=== PATIENT | male | born 1960 | race American Indian/Alaskan Native ===

== ENCOUNTER 2017-02-16 16:34 | Inpatient (IN) | payer MEDICAID, OTHER ==
[2017-02-16 17:32] LABS: BASO % 0.6 % (0.0-2.0); EOS % 0.3 % (0.0-4.0); HEMATOCRIT 41.7 % (35.0-51.0); LYMPH # 1.5 K/uL (1.0-4.3); LYMPH % 26.4 % (20.0-40.0); MEAN CELL VOLUME 81.2 fL (80.0-94.0); MEAN CORPUSCULAR HEMOGLOBIN 26.2 pg (27.0-31.0); MEAN CORPUSCULAR HGB CONC 32.3 g/dL (33.0-37.0); MEAN PLATELET VOLUME 8.1 fL (7.2-11.7); MONO # 0.3 K/uL (0.0-0.8); MONO % 5.8 % (0.0-10.0); RED CELL DISTRIBUTION WIDTH 15.7 % (11.5-14.5); WHITE BLOOD COUNT 5.8 K/uL (4.8-10.8)
[2017-02-16 17:39] LABS: CHLORIDE 107 mmol/L (98-107); POTASSIUM 3.9 mmol/L (3.6-5.2); SODIUM 142 mmol/L (132-148)
[2017-02-16 17:41] LABS: GFR AFRICAN-AMERICAN > 60
[2017-02-16 17:42] LABS: ALB/GLOB RATIO 1.3 (1.0-2.1); ALKALINE PHOSPHATASE 50 U/L (38-126); ALT/SGPT 27 U/L (21-72); AST/SGOT 31 U/L (17-59); BILIRUBIN,TOTAL 0.3 mg/dL (0.2-1.3); BLOOD UREA NITROGEN 18 mg/dL (9-20); CALCIUM 9.1 mg/dl (8.6-10.4); CARBON DIOXIDE 24 mmol/L (22-30); GLUCOSE,RANDOM 96 mg/dL (75-110); TOTAL PROTEIN 7.7 g/dL (6.3-8.3)
[2017-02-16 17:43] LABS: ALCOHOL SERUM < 10 mg/dl (0-10)
[2017-02-16 17:59] LABS: RBC URINE < 1 /hpf (0-3); URINE BACTERIA OCC (<OCC); URINE BILIRUBIN NEGATIVE (NEGATIVE); URINE BLOOD NEGATIVE (NEGATIVE); URINE COLOR Yellow (YELLOW); URINE GLUCOSE (UA) NORMAL (Normal); URINE KETONE NEGATIVE (NEGATIVE); URINE LEUKOCYTE ESTERASE NEG Leu/uL (Negative); URINE PROTEIN 1+ mg/dL (NEGATIVE); URINE UROBILINOGEN NORMAL mg/dL (0.2-1.0); WBC URINE 1 /hpf (0-5)
--- NOTE | 2017-02-16 18:17 | C.PDOC ---
Time Seen by Provider: 02/16/17 17:08 Chief Complaint (Nursing): Substance Abuse Past Medical History Vital Signs: Last Vital Signs Temp 98.3 F 02/16/17 16:47 Pulse 66 02/16/17 16:47 Resp 18 02/16/17 16:47 BP 151/95 H 02/16/17 16:47 Pulse Ox 100 02/16/17 16:47 - Medical History PMH: Anxiety, Depression, HTN Denies: Diabetes, Hepatitis, HIV, Seizures, Sexually Transmitted Disease - [facility] Procedures DETOXIFICATION SERVICES FOR SUBSTANCE ABUSE TREATMENT (12/20/15) GROUP REHAB SPEC FOR SUBSTANCE ABUSE TREATMENT, PSYCHOEDUCATION (12/20/15) - Social History Hx Alcohol Use: No Hx Substance Use: Yes - Immunization History Hx Tetanus Toxoid Vaccination: No Hx Influenza Vaccination: No Hx Pneumococcal Vaccination: No ED Course And Treatment - Laboratory Results Result Diagrams: 02/16/17 17:25 02/16/17 17:25 O2 Sat by Pulse Oximetry: 100 Disposition - Disposition Disposition: HOME/ ROUTINE Disposition Time: 18:16 Condition: GOOD - POA Present On Arrival: None - Clinical Impression Clinical Impression: Opioid dependence, Cocaine abuse
--- NOTE | 2017-02-16 18:18 | C.PDOC ---
History Of Present Illness 56-year-old male, presents to the emergency department, pre-screened for detox from opiates. No physical complaints at this time. Patient's last use was yesterday. Time Seen by Provider: 02/16/17 17:08 Chief Complaint (Nursing): Substance Abuse History Per: Patient History/Exam Limitations: no limitations Onset/Duration Of Symptoms: Days Current Symptoms Are (Timing): Still Present Suicide/Self Injury Attempted (Context): None Severity: Mild Recent travel outside of the [place]: No Past Medical History Reviewed: Historical Data, Nursing Documentation, Vital Signs Vital Signs: Last Vital Signs Temp 98.3 F 02/16/17 16:47 Pulse 66 02/16/17 16:47 Resp 18 02/16/17 16:47 BP 151/95 H 02/16/17 16:47 Pulse Ox 100 02/16/17 18:23 - Medical History PMH: Anxiety, Depression, HTN Denies: Diabetes, Hepatitis, HIV, Seizures, Sexually Transmitted Disease - [facility] Procedures DETOXIFICATION SERVICES FOR SUBSTANCE ABUSE TREATMENT (12/20/15) GROUP HIRE CAR DRIVER FOR SUBSTANCE ABUSE TREATMENT, PSYCHOEDUCATION (12/20/15) Family History: States: No Known Family Hx - Social History Hx Alcohol Use: No Hx Substance Use: Yes - Immunization History Hx Tetanus Toxoid Vaccination: No Hx Influenza Vaccination: No Hx Pneumococcal Vaccination: No Review Of Systems Except As Marked, All Systems Reviewed And Found Negative. Constitutional: Negative for: Fever Respiratory: Negative for: Shortness of Breath Gastrointestinal: Negative for: Vomiting Musculoskeletal: Negative for: Back Pain Skin: Negative for: Rash Neurological: Negative for: Weakness, Numbness Physical Exam - Physical Exam Appears: Non-toxic, No Acute Distress Skin: Warm, Dry, No Rash Head: Atraumatic, Normacephalic Eye(s): bilateral: Normal Inspection, PERRL, EOMI Nose: Normal Lips: Normal Appearing Neck: Normal ROM, Supple Cardiovascular: Rhythm Regular Respiratory: Normal Breath Sounds, No Accessory Muscle Use Gastrointestinal/Abdominal: Soft, No Tenderness Extremity: Normal ROM Neurological/Psych: Oriented x3, Normal Speech, Normal Motor Gait: Steady ED Course And Treatment - Laboratory Results Result Diagrams: 02/16/17 17:25 02/16/17 17:25 O2 Sat by Pulse Oximetry: 100 (on ra) Pulse Ox Interpretation: Normal Progress Note: Case discussed w/ drying can worker Cherry. states patient to be admitted to Dr Cotton. Disposition - Disposition Disposition: HOSPITALIZED Disposition Time: 18:20 Condition: GOOD - POA Present On Arrival: None - Clinical Impression Clinical Impression: Opiate dependence, Cocaine abuse - Scribe Statement The provider has reviewed the documentation as recorded by the Scribe Reyes Bruce All medical record entries made by the Scribe were at my direction and personally dictated by me. I have reviewed the chart and agree that the record accurately reflects my personal performance of the history, physical exam, medical decision making, and the department course for this patient. I have also personally directed, reviewed, and agree with the discharge instructions and disposition.
[2017-02-16] MEDS ORDERED: Aluminum Hydroxide/Magnesium Hydroxide Susp (30 mL) PO PRN (18:30)
[2017-02-17] MEDS ORDERED: Buprenorphine Hydrochloride 2 mg SL ONE ×2 (09:37→10:00)
--- NOTE | 2017-02-17 12:23 | PCM.PSYCH ---
Initial Psychiatric Evaluation - Initial Psychiatric Evaluation Type of Admission: Voluntary Legal Status: Capacity Chief Complaint (in patient's own words): I came here to get help. History of Present Illness and Precipitating Events: This is a 56 years old AAM, who lives with his , currently unemployed on [employer] , with a history of heroin dependence, cocaine dependence and depressive disorder came to the ED to get help in heroin detox. Patient reports a long history of heroin abuse. He states history of multiple detoxes in the past. As per the pt, he relapsed on heroin and cocaine soon after his last detox at [facility] last year. He started abusing upto 20 bags on a daily basis along with $50-100 of cocaine. Yesterday he abused up to 7 bags of heroin along with $ 50 cocaine, and started experiencing withdrawal symptoms so came to the hospital to get help. Pt reports of withdrawal symptoms including sweating, headaches, joint pains, anxiety, nausea and cramps. He reports depressed mood, however, denies any feelings of hopelessness and helplessness and denies any suicidal ideation or homicidal ideation. Patient denies any auditory or visual hallucinations or any psychotic or manic symptoms. He denies any other substance abuse. Past medical history HTN Past psychiatric history Patient reports history of multiple detoxes in the past, last one was at last year. His longest period of sobriety was for 27 months from [id number]. Patient denies any past history of inpatient psychiatric hospitalizations, however reports history of follow-up with a psychiatrist for his depression medications. Patient denies any history of suicidal ideation or attempt or any history of homicidal ideation or attempt in the past. Patient denies any history of auditory or visual hallucinations or any psychotic symptoms in the past Current Medications: Active Medications Generic Name Dose Route Start Last Admin Trade Name Freq PRN Reason Stop Dose Admin Acetaminophen 650 mg 02/16/17 18:30 Tylenol 325mg Tab PO Q4H PRN Fever greater than 101 F Al Hydrox/Mg Hydrox/Simethicone 30 ml 02/16/17 18:30 Maalox 30 Ml PO TID PRN Indigestion / Heartburn Buprenorphine HCl 6 mg 02/18/17 10:00 Subutex SL 02/21/17 09:59 .TAPER [place] Taper Clonidine HCl 0.1 mg 02/16/17 18:30 Catapres PO Q8 PRN COWS Score More or Equal to 5 Hydroxyzine HCl 25 mg 02/16/17 18:32 Atarax PO Q6 PRN Anxiety Loperamide HCl 2 mg 02/16/17 18:30 Imodium PO Q8 PRN Diarrhea Ondansetron HCl 4 mg 02/16/17 18:30 Zofran Tab PO Q8 PRN Nausea/Vomiting Trazodone HCl 50 mg 02/16/17 22:00 02/16/17 21:36 Desyrel PO Not Given HS [facility] Past Psychiatric History - Past Psychiatric History Previous Treatment History: Inpatient Pertinent Medical Hx (Current Medical&Sleep Prob, Allergies): Allergies Allergy/AdvReac Type Severity Reaction Status Date / Time PORK Allergy Verified 02/16/17 16:44 Citalopram [celEXA] 20 mg PO DAILY 12/20/15 amLODIPine [Norvasc] 20 mg PO DAILY 12/20/15 buPROPion [Bupropion HCl] 75 mg PO DAILY 02/16/17 hydrOXYzine Pamoate [Vistaril] 50 mg PO BID 02/16/17 traZODone [Desyrel] 150 mg PO HS 02/16/17 Review of Systems - Review of Systems All systems: reviewed and no additional remarkable complaints except - Psychiatric Psychiatric: Anxiety, Irritability Mental Status Examination - Personal Presentation Personal Presentation: Looks stated age - Affect Affect: Constricted - Motor Activity Motor Activity: Calm - Reliability in Providing Information Reliability in Providing Information: Good - Speech Speech: Organized - Mood Mood: Anxious - Formal Thought Process Formal Thought Process: No Impairment - Obsessions/Compulsions Obsessions: No Compulsions: No - Cognitive Functions Orientation: Person, Place, Situation, Time Sensorium: Alert Attention/Concentration: Attentive Abstract Thinking: [place] Estimate of Intelligence: Below average Judgement: Imparied, as evidence by: Poor judgement, Intact, as evidence by: Insight regarding need for hospitalization - Risk Risk: Withdrawal, Diminished functioning - Strength & Assets Inventory Strength & Assets Inventory: Family support, Cooperative DSM 5 DX - DSM 5 DSM 5 Diagnosis: Opioid use disorder severe Opioid withdrawal Cocaine use disorder mild Major depressive disorder recurrent moderate - Recommended/Plan of Treatment Treatment Recommendations and Plan of Treatment: Opioid use disorder severe CBT Psychoeducation Supportive therapy, individual therapy Use HI for abstinence Opioid withdrawal CBT Psychoeducation Supportive therapy, individual therapy Clonidine when necessary Subutex when scoring Cocaine use disorder mild Monitor signs and symptoms Use HI for abstinence Major depressive disorder recurrent moderate CBT Psychoeducation Supportive therapy, individual therapy Celexa 20 mg PO daily Welbutrin 75 mg pO Daily Trazodone 150 mg PO Q HS Hypertension Continue prescribed medications Monitor for signs and symptoms - Smoking Cessation Smoking Cessation Initiated: No
--- NOTE | 2017-02-18 09:22 | PCM.PYCHPN ---
Psychiatric Progress Note - Psychiatric Progress Note Patient seen today, length of contact: 16 min Patient Chief Complaint: I am experiencing withdrawal symptoms. Problems Identified/Issues Discussed: Patient seen and evaluated, chart reviewed and discussed with the nurse. Patient reports improvement in his mood than yesterday but still reports withdrawal symptoms including, cramps, nausea, anxiety and headaches. Patient reports depressed mood but denies any suicidal ideation or homicidal ideation. He denies any auditory or visual hallucinations. He is tolerating the withdrawal medications and denies any side effects. Supportive therapy and psychoeducation were given. Medication Change: Yes (Subutex taper, increase welbutirn) Medical Record Reviewed: Yes Mental Status Examination - Cognitive Function Orientation: Person, Place, Situation, Time Memory: Intact Attention: WNL Concentration: Poor Association: WNL Fund of Knowledge: Poor - Mood Mood: Depressed - Affect Affect: Constricted, Depressed - Speech Speech: Soft - Formal Thought Process Formal Thought Process: No Impairment - Suicidal Ideation Suicidal Ideation: No - Homicidal Ideation Homicidal Ideation: No Goal/Treatment Plan - Goal/Treatment Plan Need for Continued Stay: Discharge may exacerbated symptoms, Severe functional impairment Progress Toward Problem(s) and Goals/Treatment Plan: Opioid use disorder severe CBT Psychoeducation Supportive therapy, individual therapy Use [place] for abstinence Opioid withdrawal CBT Psychoeducation Supportive therapy, individual therapy Clonidine when necessary Subutex when scoring Cocaine use disorder mild Monitor signs and symptoms Use NV for abstinence Major depressive disorder recurrent moderate CBT Psychoeducation Supportive therapy, individual therapy Celexa 20 mg PO daily Welbutrin XL 150 mg PO Daily Trazodone 150 mg PO Q HS Hypertension Continue prescribed medications Monitor for signs and symptoms - Smoking Cessation Smoking Cessation Initiated: No
[2017-02-18] MEDS: Buprenorphine Hydrochloride 2 mg SL SCH (09:30)
[2017-02-19] MEDS: Buprenorphine Hydrochloride 2 mg SL SCH (09:49)
[2017-02-19] MEDS: buPROPion 150 mg/24 Hours XL Tab PO SCH (09:50)
--- NOTE | 2017-02-19 13:59 | PCM.PYCHPN ---
Psychiatric Progress Note - Psychiatric Progress Note Patient seen today, length of contact: 18 min Patient Chief Complaint: Im tired Problems Identified/Issues Discussed: The pt is seen, chart reviewed, case discussed. Pt mood is positive today. Pt slept well the night before. Pt denies withdrawal symptoms. His current plan is to attend an Intensive Outpatient Program. Counseled on treatment. Aftercare discussed,support and psychoeducation given. Medical Problems: Hypertension Medication Change: Yes (Subutex taper, Wellbutirn) Medical Record Reviewed: Yes Mental Status Examination - Cognitive Function Orientation: Person, Place, Situation, Time Memory: Intact Attention: WNL Concentration: WNL Association: WN Fund of Knowledge: WNL - Mood Mood: Other (Positive) - Affect Affect: Constricted - Speech Speech: Appropriate - Formal Thought Process Formal Thought Process: No Impairment - Suicidal Ideation Suicidal Ideation: No - Homicidal Ideation Homicidal Ideation: No Goal/Treatment Plan - Goal/Treatment Plan Need for Continued Stay: Discharge may exacerbated symptoms Progress Toward Problem(s) and Goals/Treatment Plan: Opioid use disorder severe CBT Psychoeducation Supportive therapy, individual therapy Use [place] for abstinence Opioid withdrawal CBT Psychoeducation Supportive therapy, individual therapy Clonidine when necessary Subutex when scoring Cocaine use disorder mild Monitor signs and symptoms Use [place] for abstinence Major depressive disorder recurrent moderate CBT Psychoeducation Supportive therapy, individual therapy Celexa 20 mg PO daily Welbutrin XL 150 mg PO Daily Trazodone 150 mg PO Q HS Hypertension Continue prescribed medications Monitor for signs and symptoms Estimated Date of D/C: 02/20/17 - Smoking Cessation Smoking Cessation Initiated: No
--- NOTE | 2017-02-20 08:42 | PCM.PYCHDC ---
Mental Status Examination - Mental Status Examination Orientation: Person, Place, Situation, Time Memory: Intact Mood: Neutral Affect: Broad, Constricted Speech: Appropriate Attention: WNL Concentration: WNL Formal Thought Process: No Impairment Suicidal Ideation: No Current Homicidal Ideation?: No Discharge Summary - Discharge Note Reason for Hospitalization: Opioid Use Disorder Consultations:: List each consultation separately and include: 1. Reason for request. 2. Findings. 3. Follow-up Summary of Hospital Course include:: 1. Description of specific treatment plan utilized for patients during their course of treatmen. 2. Summarize the time- course for resolution of acute symptoms and/or regressed behaviors. 3. Describe issues identified and worked on during hospitalization. 4. Describe medication utilized. 5. Describe medical problems identified and treated. 6. Reassessment of suicide risk Summary of Hospital Course: On admission: This is a 56 years old AAM, who lives with his , currently unemployed on [facility] , with a history of heroin dependence, cocaine dependence and depressive disorder came to the ED to get help in heroin detox. Patient reports a long history of heroin abuse. He states history of multiple detoxes in the past. As per the pt, he relapsed on heroin and cocaine soon after his last detox at [facility] last year. He started abusing upto 20 bags on a daily basis along with $50-100 of cocaine. Yesterday he abused up to 7 bags of heroin along with $ 50 cocaine, and started experiencing withdrawal symptoms so came to the hospital to get help. Pt reports of withdrawal symptoms including sweating, headaches, joint pains, anxiety, nausea and cramps. He reports depressed mood, however, denies any feelings of hopelessness and helplessness and denies any suicidal ideation or homicidal ideation. Patient denies any auditory or visual hallucinations or any psychotic or manic symptoms. He denies any other substance abuse. Past medical history HTN Past psychiatric history Patient reports history of multiple detoxes in the past, last one was at last year. His longest period of sobriety was for 27 months from [id number]. Patient denies any past history of inpatient psychiatric hospitalizations, however reports history of follow-up with a psychiatrist for his depression medications. Patient denies any history of suicidal ideation or attempt or any history of homicidal ideation or attempt in the past. Patient denies any history of auditory or visual hallucinations or any psychotic symptoms in the past Hospital course: Pt is seen, chart reviewed, case discussed. Pt feels well, slept through the night, and states that he is in a positive mood. Pt states, "I'm in a good place." Pt denies suicidal thoughts and hallucinations. Pt plan is to attend [facility] outpatient program. Attended groups [place], CBT used Support and Psychoeducation given Subutex detox completed Pt responded well to treatment - Final Diagnosis (DSM 5) Condition upon Discharge: GOOD DSM 5: Opioid use disorder severe Cocaine use disorder mild Major depressive disorder recurrent moderate Disposition: HOME/ ROUTINE Follow-up Treatment Plan: Attend Aftercare: [facility] Use relapse prevention skills Return to ER if experience suicidal ideation, homicidal ideation, agitation Pt declined any Rx as he had meds at home - Smoking Cessation Smoking Cessation Medication prescribed: No - Antipsychotic Medications Pt discharged on 2 or more routine antipsychotic medications: No
[2017-02-20] MEDS: buPROPion 150 mg/24 Hours XL Tab PO SCH (09:28)
[2017-02-20] MEDS: Buprenorphine Hydrochloride 2 mg SL SCH (09:28)
[2017-02-20 09:29] VITALS: BP 123/75; PULSE 64; RESP 16; TEMP 97.9; O2SAT 97
== END 2017-02-20 10:45 | disposition home or self-care (01) | DRG 744 ==
LOC: C.ER 16:34 → C.7D 18:17
PROVIDERS: ADMIT Psychiatry & Neurology Psychiatry; ATTEND Psychiatry & Neurology Psychiatry
PROC: HZ2ZZZZ Detoxification Services for Substance Abuse Treatment (ICD-10-PCS; principal; 2017-02-17)
PROC: HZ46ZZZ Group Counseling for Substance Abuse Treatment, Psychoeducation (ICD-10-PCS; 2017-02-17)
PROC: HZ32ZZZ Individual Counseling for Substance Abuse Treatment, Cognitive-Behavioral (ICD-10-PCS; 2017-02-17)
PROC: HZ36ZZZ Individual Counseling for Substance Abuse Treatment, Psychoeducation (ICD-10-PCS; 2017-02-17)
PROC: HZ59ZZZ Individual Psychotherapy for Substance Abuse Treatment, Supportive (ICD-10-PCS; 2017-02-17)
DX: F11.23 Opioid dependence with withdrawal (principal); F33.1 Major depressive disorder, recurrent, moderate; I10 Essential (primary) hypertension; F14.10 Cocaine abuse, uncomplicated; F41.9 Anxiety disorder, unspecified

== ENCOUNTER 2017-07-26 18:52 | Inpatient (IN) | payer MEDICAID, OTHER ==
[2017-07-26 20:41] LABS: BASO % 0.5 % (0.0-2.0); EOS # 0.1 K/uL (0.0-0.7); EOS % 1.3 % (0.0-4.0); HEMATOCRIT 41.4 % (35.0-51.0); LYMPH # 1.8 K/uL (1.0-4.3); LYMPH % 41.3 % (20.0-40.0); MEAN CELL VOLUME 82.6 fL (80.0-94.0); MEAN CORPUSCULAR HGB CONC 32.6 g/dL (33.0-37.0); MEAN PLATELET VOLUME 7.8 fL (7.2-11.7); MONO # 0.3 K/uL (0.0-0.8); MONO % 6.8 % (0.0-10.0); RED CELL DISTRIBUTION WIDTH 15.6 % (11.5-14.5); WHITE BLOOD COUNT 4.3 K/uL (4.8-10.8)
[2017-07-26 20:42] LABS: URINE BILIRUBIN NEGATIVE (NEGATIVE); URINE BLOOD NEGATIVE (NEGATIVE); URINE COLOR Yellow (YELLOW); URINE GLUCOSE (UA) NORMAL (Normal); URINE KETONE NEGATIVE (NEGATIVE); URINE LEUKOCYTE ESTERASE NEG Leu/uL (Negative); URINE PROTEIN 1+ mg/dL (NEGATIVE); URINE UROBILINOGEN NORMAL mg/dL (0.2-1.0); WBC URINE < 1 /hpf (0-5)
[2017-07-26 20:47] LABS: CHLORIDE 103 mmol/L (98-107)
[2017-07-26 20:48] LABS: POTASSIUM 4.5 mmol/L (3.6-5.2); SODIUM 141 mmol/L (132-148)
[2017-07-26 20:50] LABS: AST/SGOT 32 U/L (17-59); BILIRUBIN,TOTAL 0.6 mg/dL (0.2-1.3); CARBON DIOXIDE 24 mmol/L (22-30); GFR AFRICAN-AMERICAN > 60
[2017-07-26 20:51] LABS: ALB/GLOB RATIO 1.3 (1.0-2.1); ALCOHOL SERUM < 10 mg/dl (0-10); ALKALINE PHOSPHATASE 53 U/L (38-126); ALT/SGPT 42 U/L (21-72); BLOOD UREA NITROGEN 22 mg/dL (9-20); CALCIUM 9.3 mg/dl (8.6-10.4); GLUCOSE,RANDOM 83 mg/dL (75-110); TOTAL PROTEIN 7.4 g/dL (6.3-8.3)
--- NOTE | 2017-07-26 20:54 | C.PDOC ---
History Of Present Illness 57 yr old male presents to the ER prescreened for detox from heroin. Reports last use was today around 2pm. Otherwise, patient denies any medical complaints at the time. Denies SI, HI or hallucinations. Time Seen by Provider: 07/26/17 19:15 Chief Complaint (Nursing): Psychiatric Evaluation History Per: Patient History/Exam Limitations: no limitations Onset/Duration Of Symptoms: Persistent Past Medical History Reviewed: Historical Data, Nursing Documentation, Vital Signs Vital Signs: Last Vital Signs Temp 97.7 F 07/26/17 18:59 Pulse 72 07/26/17 18:59 Resp 16 07/26/17 18:59 BP 150/97 H 07/26/17 18:59 Pulse Ox 98 07/26/17 20:55 - Medical History PMH: Anxiety, Bipolar Disorder, Depression, Hepatitis (C), HTN, Post Traumatic Stress Disorder - [facility] Procedures DETOXIFICATION SERVICES FOR SUBSTANCE ABUSE TREATMENT (02/16/17) GROUP GASOLINE POWER SHOVEL OPERATOR FOR SUBSTANCE ABUSE TREATMENT, PSYCHOEDUCATION (02/16/17) INDIV GASOLINE POWER SHOVEL OPERATOR FOR SUBSTANCE ABUSE TREATMENT, PSYCHOEDUCATION (02/16/17) INDIV GASOLINE POWER SHOVEL OPERATOR FOR SUBSTANCE ABUSE, COGNITIVE BEHAVIORAL (02/16/17) INDIV PSYCHOTHERAPY FOR SUBSTANCE ABUSE TREATMENT, SUPPORT (02/16/17) Family History: States: No Known Family Hx - Social History Hx Alcohol Use: No Hx Substance Use: Yes - Immunization History Hx Tetanus Toxoid Vaccination: Yes Hx Influenza Vaccination: No Hx Pneumococcal Vaccination: No Review Of Systems Except As Marked, All Systems Reviewed And Found Negative. Constitutional: Negative for: Fever Cardiovascular: Negative for: Chest Pain Respiratory: Negative for: Shortness of Breath Gastrointestinal: Negative for: Nausea, Vomiting Neurological: Negative for: Weakness, Numbness Psych: Negative for: Suicidal ideation Physical Exam - Physical Exam Appears: Non-toxic, No Acute Distress Skin: Warm, Dry, No Rash Head: Atraumatic, Normacephalic Eye(s): bilateral: Normal Inspection Oral Mucosa: Moist Chest: Symmetrical, No Tenderness Cardiovascular: Rhythm Regular, No Murmur Respiratory: Normal Breath Sounds, No Rales, No Rhonchi, No Stridor, No Wheezing Extremity: Normal ROM, No Swelling Neurological/Psych: Oriented x3, Normal Speech, Normal Motor, Normal Sensation Gait: Steady ED Course And Treatment - Laboratory Results Result Diagrams: 07/26/17 20:34 07/26/17 20:34 O2 Sat by Pulse Oximetry: 98 (RA) Pulse Ox Interpretation: Normal Medical Decision Making Medical Decision Making: PLAN: * Drug Screen * Alcohol Serum * CBC * CMP * Urinalysis PT IS MEDICALLY CLEARED FOR DETOX Pt was evaluated by ironworker foreman and pt is admitted to Detox by Dr Guillermo Disposition - Disposition Disposition: HOSPITALIZED Disposition Time: 21:39 Condition: STABLE Forms: [employer] (Kyrgyz) - Clinical Impression Clinical Impression: Cocaine abuse - PA / NEEDLEMAKER / Resident Statement MD/DO has reviewed & agrees with the documentation as recorded. - Scribe Statement The provider has reviewed the documentation as recorded by the Scribe Ann Pittman All medical record entries made by the Scribe were at my direction and personally dictated by me. I have reviewed the chart and agree that the record accurately reflects my personal performance of the history, physical exam, medical decision making, and the department course for this patient. I have also personally directed, reviewed, and agree with the discharge instructions and disposition.
[2017-07-26] MEDS ORDERED: Aluminum Hydroxide/Magnesium Hydroxide Susp (30 mL) PO PRN (23:15)
--- NOTE | 2017-07-27 02:55 | PCM.BM ---
<Alex Huang - Last Filed: 07/27/17 02:54> Treatment Plan Problems - Problems identified on initial assessmt Opiates abuse Date Initiated: 07/27/17 Time Initiated: 00:20 Assessment reference: NA Status: Active Treatment assets and liabiliti Patient Assests: insightful, ADL independent, negotiates basic needs Patient Liabilities: substance abuse, medical problems - Milieu Protocol Maintain good personal hygiene: daily Encourage regular showers, daily Remind patient to perform daily oral care Maintain personal safety: every shift Educate patient to report safety concerns to staff, every shift Monitor environment for contraband/sharps Medication safety: Monitor for expected outcome, potential side effects: every shift, Assess barriers to learning: every shift, Assess readiness for medication education: every shift <Alfonso Guillermo - Last Filed: 07/28/17 10:44> - Diagnosis (1) Opioid use disorder, severe, dependence Status: Acute Interventions: 07/28/17 10:45 * Assess 7x/week regarding severity of withdrawal * Educate regarding risks, benefits, side effects and alternatives of medications * Use Motivational Interviewing for abstinence * Use CBT for relapse prevention * Medication management for withdrawal symptoms * Encourage medication assisted treatment * <Cielo Fernandez - Last Filed: 07/30/17 08:21> Family Contact Family involvement: Family/SO is involved Family contact: Patient agrees to contact, Telephone contact initiated by staff - Goals for Treatment Patient goals for treatment: Complete detox and transition to long-term inpatient treatment. Discharge/Continuing Care - Education Needs Education Needs: Patient Medication, Patient Diagnosis/Disease Process, Patient Coping Skills, Patient Anger Management skills, Patient Placement options, Patient Community resources - Discharge Discharge Criteria: No longer exhibiting s/s of withdrawal, Reduction of target symptoms Discharge to:: Substance Abuse Rehab - Treatment Team Participation Patient/Family/SO Statement: 07/30/17 08:20 "I need to go to jail care when I'm done--I can't do outpatient--it won't work for me..." Discussed with Family/SO: No Was Patient/Family/SO present at Treatment Team Meeting: Yes
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
[2017-07-27] MEDS ORDERED: Buprenorphine Hydrochloride 2 mg SL ONE ×2 (16:00→17:00)
[2017-07-28] MEDS: Buprenorphine Hydrochloride 2 mg SL SCH (10:11)
--- NOTE | 2017-07-28 20:08 | PCM.PYCHPN ---
Psychiatric Progress Note - Psychiatric Progress Note Patient seen today, length of contact: 19 minutes Patient Chief Complaint: I'm feeling lot better after taking meds Problems Identified/Issues Discussed: The pt is seen, chart reviewed, case discussed with staff. The pt stated that he is feeling much better. He reported improvement in his withdrawal symptoms. Support given, CBT and AL used briefly No new symptoms reported, improving slowly and needs more time No SEs from medications, risks discussed. After care discussed Diagnostic Results: No new lab results DSM 5 Symptoms Update: Opioid use disorder, severe Opioid withdrawal Cocaine use disorder, severe PTSD Depressive disorder, unspecified Anxiety disorder, unspecified Medication Change: Yes (subutex taper) Medical Record Reviewed: Yes Mental Status Examination - Cognitive Function Orientation: Person, Place, Situation, Time Memory: Intact Attention: WNL Concentration: WNL Association: WNL Fund of Knowledge: WNL - Mood Mood: Neutral - Affect Affect: Constricted - Speech Speech: Appropriate - Formal Thought Process Formal Thought Process: No Impairment Psychotic Thoughts and Behaviors: Denied AVH, no paranoid delusions - Suicidal Ideation Suicidal Ideation: No Plan: denied intent or plan - Homicidal Ideation Homicidal Ideation: No Goal/Treatment Plan - Goal/Treatment Plan Need for Continued Stay: Discharge may exacerbated symptoms, Other (relapse to drugs abuse) Progress Toward Problem(s) and Goals/Treatment Plan: Subutex detox As needed medications Gabapentin for augmentation Attend groups and activities Supportive therapy and psychoeducation AL for abstinence CBT for relapse prevention Encourage MAT Refer to rehab or IOP Attend self-help groups as well Resume celexa for low level depression Estimated Date of D/C: 07/30/17 - Smoking Cessation Smoking Cessation Initiated: Yes
[2017-07-29] MEDS: Buprenorphine Hydrochloride 2 mg SL SCH (09:58)
--- NOTE | 2017-07-29 19:29 | PCM.PYCHPN ---
Psychiatric Progress Note - Psychiatric Progress Note Patient seen today, length of contact: 18 minutes Patient Chief Complaint: "I'm feeling lot better" Problems Identified/Issues Discussed: The pt is seen, chart reviewed, case discussed with staff. Support given, CBT and DC used briefly No new symptoms reported, improving slowly and needs more time No SEs from medications, risks, benefits and s/e discussed. After care discussed Diagnostic Results: No new lab results DSM 5 Symptoms Update: Opioid withdrawal Opioid use d/o severe, dependence Medication Change: Yes (subutex taper) Medical Record Reviewed: Yes Mental Status Examination - Cognitive Function Orientation: Person, Place, Situation, Time Memory: Intact Attention: WNL Concentration: WNL Association: WNL Fund of Knowledge: WNL - Mood Mood: Neutral - Affect Affect: Constricted - Speech Speech: Appropriate - Formal Thought Process Formal Thought Process: No Impairment Psychotic Thoughts and Behaviors: Denied AVH, no paranoid delusions - Suicidal Ideation Suicidal Ideation: No - Homicidal Ideation Homicidal Ideation: No Goal/Treatment Plan - Goal/Treatment Plan Need for Continued Stay: Discharge may exacerbated symptoms, Other (relapse to drugs abuse) Progress Toward Problem(s) and Goals/Treatment Plan: Subutex detox As needed medications Gabapentin for augmentation Attend groups and activities Supportive therapy and psychoeducation DC for abstinence CBT for relapse prevention Encourage MAT Refer to rehab or IOP Attend self-help groups as well Resume celexa for low level depression Estimated Date of D/C: 07/30/17
[2017-07-30] MEDS ORDERED: Vitamins A & D Oint UD Foilpak TOP PRN (07:29)
[2017-07-30 08:56] VITALS: BP 137/87; PULSE 54; RESP 18; TEMP 97.9; O2SAT 98
[2017-07-30] MEDS: Buprenorphine Hydrochloride 2 mg SL SCH (09:56)
--- NOTE | 2017-07-30 14:52 | PCM.PYCHDC ---
Mental Status Examination - Mental Status Examination Orientation: Person, Place, Situation, Time Memory: Intact Mood: Neutral Affect: Broad Speech: Appropriate Attention: WNL Concentration: WNL Association: WNL Fund of Knowledge: WNL Formal Thought Process: No Impairment Suicidal Ideation: No Current Homicidal Ideation?: No Discharge Summary - Discharge Note Reason for Hospitalization: Opioid and cocaine use disorders and opioid withdrawal (cocaine and heroin) Consultations:: List each consultation separately and include: 1. Reason for request. 2. Findings. 3. Follow-up Summary of Hospital Course include:: 1. Description of specific treatment plan utilized for patients during their course of treatmen. 2. Summarize the time- course for resolution of acute symptoms and/or regressed behaviors. 3. Describe issues identified and worked on during hospitalization. 4. Describe medication utilized. 5. Describe medical problems identified and treated. 6. Reassessment of suicide risk Summary of Hospital Course: The pt was admitted and started on treatment with psychotherapy, support, psychoeducation and medications. MT and CBT used. The pt attended groups and activities, as well as milieu therapy. All the risks and benefits of medications are discussed and the patient understood and agreed. The pt improved with the treatments provided. Pt states he is feeling much better, the weekend was calm and he slept well. After care discussed with the patient. Pt will attend IOP at [facility] in [place] where he has previously attended. Pt was also informed of Grief counseling program offered and is interested in attending as well. - Final Diagnosis (DSM 5) Condition upon Discharge: STABLE DSM 5: Opioid use disorder, severe Opioid withdrawal Cocaine use disorder, severe PTSD Depressive disorder, unspecified Anxiety disorder, unspecified Disposition: HOME/ ROUTINE Follow-up Treatment Plan: Continue below medications after discharge. Follow after care plan as discussed. Use relapse prevention skills Return to ER or call 911 if suicidal, homicidal or symptoms relapse. Stay away from stress, alcohol and drugs. See primary doctor regularly and get labs. Prescriptions/Medication Reconciliation: amLODIPine [Norvasc] 5 mg PO DAILY #30 tab Citalopram [celEXA] 20 mg PO DAILY #30 tab Gabapentin [Neurontin] 100 mg PO TID #90 cap traZODone [Desyrel] 50 mg PO HS PRN #30 tab PRN Reason: Insomnia - Antipsychotic Medications Pt discharged on 2 or more routine antipsychotic medications: No
== END 2017-07-30 12:15 | disposition home or self-care (01) | DRG 744 ==
LOC: C.ER 18:52 → C.7D 21:31
PROVIDERS: ADMIT Psychiatry & Neurology Psychiatry; ATTEND Psychiatry & Neurology Psychiatry
PROC: HZ2ZZZZ Detoxification Services for Substance Abuse Treatment (ICD-10-PCS; principal; 2017-07-26)
PROC: HZ59ZZZ Individual Psychotherapy for Substance Abuse Treatment, Supportive (ICD-10-PCS; 2017-07-26)
PROC: HZ46ZZZ Group Counseling for Substance Abuse Treatment, Psychoeducation (ICD-10-PCS; 2017-07-26)
DX: F11.23 Opioid dependence with withdrawal (principal); F14.20 Cocaine dependence, uncomplicated; F31.9 Bipolar disorder, unspecified; F43.10 Post-traumatic stress disorder, unspecified; I10 Essential (primary) hypertension; B18.2 Chronic viral hepatitis C; F17.210 Nicotine dependence, cigarettes, uncomplicated; Z62.810 Personal history of physical and sexual abuse in childhood; Z81.8 Family history of other mental and behavioral disorders; Z97.0 Presence of artificial eye